=== PATIENT | male | born 1995 | race Caucasian/White ===

== ENCOUNTER 2023-06-03 22:55 | Emergency (ER) | payer MEDICAID ==
[~2023-06-03] VITALS: Ht 162.6 cm; Wt 59.1 kg
[2023-06-03 23:08] VITALS: BP 128/84; PULSE 90; RESP 18; TEMP 97.3; O2SAT 92
[2023-06-03] MEDS ORDERED: PHEN97.22 PO (23:19)
[2023-06-03] MEDS ORDERED: phenobarbital 30mg tablet PO SCH (23:30)
[2023-06-03] MEDS: phenobarbital 30mg tablet PO ONE ×2 (23:51→23:52)
[2023-06-03] MEDS: Cipro HC otic suspension 10ML bottle RIGHT EAR ONE (23:52)
== END 2023-06-04 00:11 | disposition home or self-care (01) ==
LOC: ER 22:57
DX: R56.9 Unspecified convulsions (principal); Z79.899 Other long term (current) drug therapy
CPT/HCPCS: 99283